=== PATIENT | male | born 1955 | race Caucasian/White ===

== ENCOUNTER → 2020-08-07 | Outpatient (CLI) | payer BC | LOC: COL.RAD 09:45 | DX: I77.810 Thoracic aortic ectasia (principal); R91.8 Other nonspecific abnormal finding of lung field | CPT/HCPCS: Q9967 ==

== ENCOUNTER → 2023-12-02 | Outpatient (CLI) | payer MEDICARE, BC ==
[~2023-12-02] MED LIST: Albuterol 0.083% Neb Soln 2.5 MG/3 ML UD IH ONE; Methacholine Vial A (Clear Label Base-Cntrl) IH ONE; Methacholine Vial B (Red Label) 0.0625 MG/ML 3 ML VIAL.NEB IH ONE; Methacholine Vial C (Orange Label) 0.25 MG/ML 3 ML VIAL.NEB IH ONE; Methacholine Vial D (Yellow Label) 1 MG/ML 3 ML VIAL.NEB IH ONE; Methacholine Vial E (Green Label) 4 MG/ML 3 ML VIAL.NEB IH ONE; Methacholine Vial F (Blue Label) 16 MG/ML 3 ML VIAL.NEB IH ONE
== END ==
LOC: COL.CARD 10:24
DX: R06.02 Shortness of breath (principal)
CPT/HCPCS: J7674